=== PATIENT | male | born 1975 ===

== ENCOUNTER 2024-08-06 19:22 | Emergency (ER) | payer SELFPAY ==
[~2024-08-06] VITALS: Ht 188 cm; Wt 80.0 kg
[~2024-08-06 19:22] MED LIST: BACTRIM DS1 TAB OR; DOXYCYC MONO100 MG OR; LORTAB 10 OR
[2024-08-06 19:42] VITALS: BP 119/91
[2024-08-06 19:46] VITALS: BP 156/84
[2024-08-06] MEDS ORDERED: SULFAMETHOXAZOLE W/TRIMETHOPRI 1 COMBO TAB PO ONE (19:50)
[2024-08-06] MEDS ORDERED: LIDOcaine HCl 1% (Local Anesth.) 20 ML VIAL IM STA (19:58)
[2024-08-06] MEDS ORDERED: NAPROXEN 250 MG/TAB PO ONE (20:00)
[2024-08-06] MEDS ORDERED: BACTRIM DS1 TAB PO (20:00)
[2024-08-06] MEDS ORDERED: HYDROcodone 7.5 MG/Acetaminophen 325 MG/COMBO PO ONE (20:00)
[2024-08-06] MEDS ORDERED: cefTRIAXone SODIUM 2 GM/VIAL SDV IM ONE (20:00)
[2024-08-06 20:01] VITALS: BP 155/89
[2024-08-06] MEDS ORDERED: NAPROXEN500 MG PO (20:02)
[2024-08-06 20:38] VITALS: BP 155/89
== END 2024-08-06 20:38 | disposition home or self-care (01) | DRG 603 ==
LOC: ED 19:22
DX: L03.114 Cellulitis of left upper limb (principal); F19.10 Other psychoactive substance abuse, uncomplicated; F17.210 Nicotine dependence, cigarettes, uncomplicated
CPT/HCPCS: J0696